=== PATIENT | male | born 1960 | race Caucasian/White ===

== ENCOUNTER → 2024-07-11 | Outpatient (CLI) | payer MEDICARE, OTHER ==
[2024-07-11 12:00] LABS: BASO # 0.02 K/mm3 (0.02-0.10); EOS # 0.17 K/mm3 (0.04-0.40); EOS % 2.6 % (0.0-4.0); HEMATOCRIT 43.8 % (42.0-52.0); HEMOGLOBIN 14.6 g/dL (13.5-18.0); LYMPH# 1.74 K/mm3 (1.50-4.00); MEAN CELL VOLUME 86 fl (78-100); MEAN CORPUSCULAR HEMOGLOBIN 29 pg (27-31); MEAN CORPUSCULAR HGB CONC 33 g/dL (33-37); MEAN PLATELET VOLUME 9.6 fl (7.4-10.4); MONO # 0.49 K/mm3 (0.20-0.80); NEU # 4.09 K/mm3 (1.40-6.50); PLATELET COUNT 231 K/mm3 (130-400); RED BLOOD COUNT 5.09 M/mm3 (4.20-5.60); RED CELL DISTRIBUTION WIDTH 12.6 % (11.5-14.5); WHITE BLOOD COUNT 6.5 K/mm3 (4.8-10.8)
[2024-07-11 12:06] LABS: ALBUMIN 4.2 g/dL (3.4-4.8)
[2024-07-11 12:07] LABS: CALCIUM 9.7 mg/dL (8.3-10.5)
[2024-07-11 12:09] LABS: TOTAL PROTEIN 6.9 g/dL (6.2-8.1)
[2024-07-11 12:10] LABS: TOTAL BILIRUBIN 0.4 mg/dL (0.2-1.2)
== END ==
LOC: LAB 11:26
PROVIDERS: Family Medicine
DX: Z12.5 Encounter for screening for malignant neoplasm of prostate (principal); E78.5 Hyperlipidemia, unspecified; E03.9 Hypothyroidism, unspecified; I10 Essential (primary) hypertension; R73.9 Hyperglycemia, unspecified

== ENCOUNTER → 2024-09-05 | Day surgery (SDC) | payer MEDICARE, OTHER ==
[~2024-09-05] MED LIST: fentaNYL 100 MCG/2 ML VIAL ONE
== END | disposition home or self-care (01) ==
LOC: MSO 08:35
DX: Z12.11 Encounter for screening for malignant neoplasm of colon (principal); K57.30 Diverticulosis of large intestine without perforation or abscess without bleeding
CPT/HCPCS: 00812; J2704; J3010; J7120